=== PATIENT | male | born 1930 | race Caucasian/White ===

== ENCOUNTER 2017-06-21 11:03 | Inpatient (IN) | payer MEDICARE ==
[~2017-06-21] VITALS: Ht 189.2 cm; Wt 73.7 kg
[2017-06-21 14:59] VITALS: BP 159/93
[2017-06-21] MEDS ORDERED: ACET325T9 PO (15:11)
[2017-06-21] MEDS ORDERED: LOSA50TA6 PO (15:11)
[2017-06-21] MEDS ORDERED: TAMS0.4C2 PO (15:11)
[2017-06-21] MEDS ORDERED: PANT40TA5 PO (15:11)
[2017-06-21] MEDS ORDERED: ASPI-630 PO (15:11)
[2017-06-21] MEDS ORDERED: MULT1TAB52 PO (15:11)
[2017-06-21] MEDS ORDERED: FLUT9.9S NS (15:11)
[2017-06-21] MEDS ORDERED: HYDR-2758 PO (15:11)
--- NOTE | 2017-06-21 20:02 | HP ---
ADMIT DATE: 06/21/2017 HISTORY OF PRESENT ILLNESS: The patient is an 87-year-old right-handed male patient who was living independently in his own home. He is known to have Eatgxxd-Xlaql-Bdtpp hereditary neuropathy. He apparently attempted to get out of his bedroom door when he suddenly lost his balance and hit the edge of the door and then fell to the ground. He spent several hours attempting try to get to his telephone, which was closer to bed, and according to him, he did a modified ___ call. He realized that he was in a lot of pain to his left rib wall. However, he did not have any hemoptysis and neither did he complain of significant shortness of breath, but he did have quite a bit disabling pain. The patient was found, was brought to [facility] emergently on 06/12/2017. He was found at 12:00 the next day by his family members. His CK was elevated. When he arrived there, he was diagnosed to have any rhabdomyolysis. In addition to that, he suffered multiple rib fractures on the left from rib 4 to 8. He was partially stabilized and was referred for admission to acute inpatient rehabilitation at [facility] where he was seen, and as he was unable to participate with regular exercise required for inpatient rehabilitation, he was transferred to our hospital to be admitted to [facility] bed. When I saw him this afternoon, he continued to have some discomfort in the left side, especially on attempt to move or take a deep breath or cough, but denied any shortness of breath, cough, phlegm or hemoptysis. Also, apparently, his right second toenail was removed, and he has some sutures that are covered with dry scab. PAST MEDICAL HISTORY: Significant for hypertension, Qmttlyp-Teqtp-Gitdt related to neuropathy with marked muscle weakness of his hands and feet. He has also pes cavus of both feet, benign prostatic hypertrophy. PAST SURGICAL HISTORY: Significant for appendectomy and hip replacement as well as bilateral cataract extraction. ALLERGIES: HE IS ALLERGIC TO GABAPENTIN. MEDICATIONS: He is currently on following medications: He is on Tylenol 650 mg every 4 hours, aspirin 81 mg once a day, Flonase 1 spray to each nostril twice a day, hydrocodone/APAP 5/325 two tablets every 4 hours as needed, losartan potassium 50 mg once a day, multivitamin 1 tablet once a day, Protonix 40 mg once a day, and tamsulosin 0.4 mg once a day. FAMILY HISTORY: Positive for hypertension and heart problems. SOCIAL HISTORY: He is , lives by himself in a 2 level house, ambulatory with the use adaptive equipment. He has 2 daughters and 2 grandsons that also can check on him. His plan obviously was to get stronger and to go back home to live on his own again. REVIEW OF SYSTEMS: The patient denied any blurring of vision. He apparently had bilateral cataract extractions, but denied any glaucoma or macular degeneration. Denied any earache, tinnitus or sensorineural deafness. Denied any nosebleeds, stuffy nose or postnasal drip. Denied any sore throat, sore tongue, toothache, hoarseness of voice or difficulty swallowing. Denied any nausea, vomiting, diarrhea or constipation. Denied any hematemesis, melena or hematochezia. Denied any dysuria, frequency or hematuria. He does have urge incontinence. He does have obviously chest discomfort mostly in the left side, exacerbated by movement, taking a deep breath and coughing, but he does not have any shortness of breath at rest. PHYSICAL EXAMINATION: GENERAL: When I examined him this afternoon, he was resting slightly propped up in bed, in no apparent respiratory distress, was pale. No jaundice, cyanosis, or thyromegaly. No jugular venous distension. No lower limb edema. VITAL SIGNS: His heart rate was 109, blood pressure was 159/93, temperature was 97.4, respiratory rate was 18 and oxygen saturation was 98%. HEAD, EYES, EARS, NOSE AND THROAT: Showed normocephalic, atraumatic. NECK: Supple. HEART: Showed normal first and second heart sounds with no gallop, rub or murmur. CHEST: Clear to auscultation. No crepitation or rhonchi. ABDOMEN: Distended, soft, nontender. No guarding or rigidity. No organomegaly. Hernial orifices intact. Bowel sounds normal. NEUROLOGIC: He was awake, alert, responding appropriately. All cranial nerves intact. EXTREMITIES: He moves extremities without difficulty. He has hereditary Aspsdlh-Nadqe-Uivsr neuropathy with marked muscle wasting and weakness of both hands and feet. Examination of the extremities showed no clubbing, cyanosis or edema. All his peripheral pulses are easily palpable. ASSESSMENT: In summary, this is an 87-year-old male patient who normally lives alone and fairly independent, who has a mechanical fall leading to multiple left-sided rib fractures. He has also had splinting secondary to traumatic pain and rhabdomyolysis with elevated CPK. He has also avulsion injury of his right second toe with sutures in place. He has multiple other medical problems including hypertension, benign prostatic hypertrophy, on Flomax, Qebbqpq-Fzqjw-Wgrpn polyneuropathy, dysphagia and protein calorie malnutrition with severe weakness and debility. My plan is obviously to continue with pain management. Continue with physical and occupational therapy and nutritional support. I will apply Xeroform to moisten the scab over his second right toe, and hopefully tomorrow, we will be able to find out the sutures and remove them. I will send blood for lab work and decide on further management accordingly. KARRI BRUNER MD DR: GERSON/lexy JOB#: [id number] / [id number]
[2017-06-21 21:30] VITALS: BP 160/91
[2017-06-21] MEDS: HYDROcodone/APAP 5/325MG 1 TAB TABLET PO PRN (22:15)
[2017-06-22] MEDS: HYDROcodone/APAP 5/325MG 1 TAB TABLET PO PRN ×3 (01:40→22:52)
[2017-06-22 06:23] LABS: HEMATOCRIT 33.9 % (39.0-53.0); HEMOGLOBIN 12.1 g/dL (13.0-17.5); RED BLOOD COUNT 3.45 x10^6/uL (4.30-5.70); RED CELL DISTRIBUTION WIDTH 13.3 % (11.5-14.5)
[2017-06-22 06:57] LABS: CALCIUM 8.3 mg/dL (8.5-10.1); GFR 70.4; POTASSIUM 3.4 mmol/L (3.5-5.1); TOTAL BILIRUBIN 0.6 mg/dL (0.2-1.0); TOTAL PROTEIN 6.1 g/dL (6.4-8.2)
[2017-06-22 09:44] VITALS: BP 124/75
[2017-06-22] MEDS: PANTOPRAZOLE 40 MG TABLET. PO SCH (09:49)
[2017-06-22] MEDS: FLUTICASONE 50MCG/NASAL SPRAY 16GM BOTTLE. NS SCH (09:49)
[2017-06-22] MEDS: MULTIVITAMIN with MINERAL TABLET. PO SCH (09:49)
[2017-06-22] MEDS: LOSARTAN 50 MG TABLET. PO SCH (09:49)
[2017-06-22] MEDS: TAMSULOSIN 0.4 MG CAP.ER.24H. PO SCH (09:49)
[2017-06-22] MEDS: ASPIRIN 81 MG TAB.CHEW PO SCH (09:49)
[2017-06-22 21:32] VITALS: BP 158/82
[2017-06-23 06:29] VITALS: BP 127/81
[2017-06-23] MEDS: LOSARTAN 50 MG TABLET. PO SCH (09:06)
[2017-06-23] MEDS: TAMSULOSIN 0.4 MG CAP.ER.24H. PO SCH (09:06)
[2017-06-23] MEDS: ASPIRIN 81 MG TAB.CHEW PO SCH (09:06)
[2017-06-23] MEDS: MULTIVITAMIN with MINERAL TABLET. PO SCH (09:06)
[2017-06-23] MEDS: PANTOPRAZOLE 40 MG TABLET. PO SCH (09:06)
[2017-06-23] MEDS: HYDROcodone/APAP 5/325MG 1 TAB TABLET PO PRN ×3 (09:07→19:23)
[2017-06-23] MEDS: FLUTICASONE 50MCG/NASAL SPRAY 16GM BOTTLE. NS SCH (09:07)
[2017-06-23] MEDS: CARVEDILOL 12.5 MG TABLET PO SCH (17:26)
[2017-06-23 18:14] VITALS: BP 112/69
[2017-06-24 06:12] VITALS: BP 135/73
[2017-06-24] MEDS: HYDROcodone/APAP 5/325MG 1 TAB TABLET PO PRN ×2 (06:37→19:44)
[2017-06-24 07:46] VITALS: BP 155/84
[2017-06-24] MEDS: PANTOPRAZOLE 40 MG TABLET. PO SCH (09:02)
[2017-06-24] MEDS: TAMSULOSIN 0.4 MG CAP.ER.24H. PO SCH (09:03)
[2017-06-24] MEDS: MULTIVITAMIN with MINERAL TABLET. PO SCH (09:03)
[2017-06-24] MEDS: LOSARTAN 50 MG TABLET. PO SCH (09:03)
[2017-06-24] MEDS: ASPIRIN 81 MG TAB.CHEW PO SCH (09:03)
[2017-06-24] MEDS: CARVEDILOL 12.5 MG TABLET PO SCH ×2 (09:03→17:27)
[2017-06-24] MEDS: FLUTICASONE 50MCG/NASAL SPRAY 16GM BOTTLE. NS SCH (09:04)
[2017-06-24 17:24] VITALS: BP 163/80
[2017-06-25 06:42] VITALS: BP 190/80
[2017-06-25] MEDS: ASPIRIN 81 MG TAB.CHEW PO SCH (07:53)
[2017-06-25] MEDS: PANTOPRAZOLE 40 MG TABLET. PO SCH (07:53)
[2017-06-25] MEDS: CARVEDILOL 12.5 MG TABLET PO SCH ×2 (07:53→17:02)
[2017-06-25] MEDS: MULTIVITAMIN with MINERAL TABLET. PO SCH (07:53)
[2017-06-25] MEDS: TAMSULOSIN 0.4 MG CAP.ER.24H. PO SCH (07:53)
[2017-06-25] MEDS: LOSARTAN 50 MG TABLET. PO SCH (07:54)
[2017-06-25] MEDS: FLUTICASONE 50MCG/NASAL SPRAY 16GM BOTTLE. NS SCH (07:54)
[2017-06-25] MEDS: HYDROcodone/APAP 5/325MG 1 TAB TABLET PO PRN ×3 (07:57→21:30)
[2017-06-25 11:14] VITALS: BP 104/63
[2017-06-25 14:25] VITALS: BP 108/64
[2017-06-25 18:20] VITALS: BP 106/55
[2017-06-26] MEDS: HYDROcodone/APAP 5/325MG 1 TAB TABLET PO PRN ×3 (03:44→18:51)
[2017-06-26 05:22] VITALS: BP 132/66
[2017-06-26] MEDS: CARVEDILOL 6.25 MG TABLET PO SCH ×2 (08:30→17:00)
[2017-06-26] MEDS: MULTIVITAMIN with MINERAL TABLET. PO SCH (08:31)
[2017-06-26] MEDS: ASPIRIN 81 MG TAB.CHEW PO SCH (08:31)
[2017-06-26] MEDS: TAMSULOSIN 0.4 MG CAP.ER.24H. PO SCH (08:31)
[2017-06-26] MEDS: PANTOPRAZOLE 40 MG TABLET. PO SCH (08:31)
[2017-06-26] MEDS: FLUTICASONE 50MCG/NASAL SPRAY 16GM BOTTLE. NS SCH (08:33)
[2017-06-26] MEDS: LOSARTAN 50 MG TABLET. PO SCH (08:34)
[2017-06-26 14:09] VITALS: BP 120/79
[2017-06-26 19:01] VITALS: BP 139/78
[2017-06-27] MEDS: HYDROcodone/APAP 5/325MG 1 TAB TABLET PO PRN ×4 (01:40→23:07)
[2017-06-27 05:43] VITALS: BP 142/72
--- NOTE | 2017-06-27 06:57 | PN ---
DATE: 06/26/2017 CURRENT PROBLEMS: 1. Mechanical fall. 2. Left rib fractures. 3. Pain management. 4. Rhabdomyolysis, which is resolved. 5. Hypertension. 6. Benign prostatic hypertrophy. 7. Qmshetb-Qfsjs-Oeijg neuropathy. 8. Weakness. 9. Protein-calorie malnutrition. 10. Right toenail removal. SUBJECTIVE: This is an 87-year-old male who was transferred from [facility] for swing bed status after falling and remaining down on the ground for a long period of time, probably over 12 hours and had rhabdomyolysis, also rib fractures. He has been undergoing PT and OT. His blood pressure has been elevated and he was started on Coreg 12.5 mg twice a day. He did have some low blood pressures this morning. Also had two Lortab last night and then an additional Lortab at 3:45 this morning. He told his daughter that he does not remember what happened yesterday. This could be amnesia from the pain medication. OBJECTIVE: VITAL SIGNS: Blood pressure 132/66, pulse 75, respirations 20, pulse ox 93% on room air, temperature is 98; yesterday evening had 106/55. GENERAL: He is sitting up in bed, eating his breakfast. He is able to do feed himself. He is alert, but does state he does not remember much what happened yesterday. HEENT: His tongue was moist. NECK: Supple. LUNGS: Clear. CARDIOVASCULAR: Regular rhythm and rate with a 2/6 systolic murmur. ABDOMEN: Soft and nontender. EXTREMITIES: Without edema. PLAN: I am going to decrease Lortab to just one every 4 hours as needed. Also decrease the Coreg down to 6.25 twice a day and monitor for any other side effects he might have and continue PT and OT for now. He is getting Boost for his protein-calorie malnutrition. AMBROSE QUIÑONES DO DR: JUAN DIEGO/lexy JOB#: [id number] / [id number]
[2017-06-27] MEDS: CARVEDILOL 6.25 MG TABLET PO SCH (08:00)
[2017-06-27] MEDS: PANTOPRAZOLE 40 MG TABLET. PO SCH (08:19)
[2017-06-27] MEDS: FLUTICASONE 50MCG/NASAL SPRAY 16GM BOTTLE. NS SCH (08:19)
[2017-06-27] MEDS: ASPIRIN 81 MG TAB.CHEW PO SCH (08:20)
[2017-06-27] MEDS: LOSARTAN 50 MG TABLET. PO SCH (08:20)
[2017-06-27] MEDS: MULTIVITAMIN with MINERAL TABLET. PO SCH (08:21)
[2017-06-27] MEDS: TAMSULOSIN 0.4 MG CAP.ER.24H. PO SCH (08:21)
[2017-06-27 09:19] VITALS: BP 143/73
[2017-06-27] MEDS ORDERED: POLYETHYLENE GLYCOL 3350 17 GM PACKET. PO ONE (12:45)
[2017-06-27 16:00] VITALS: BP 145/78
[2017-06-27 19:09] VITALS: BP 147/77
[2017-06-28 06:00] VITALS: BP 139/76
[2017-06-28] MEDS: HYDROcodone/APAP 5/325MG 1 TAB TABLET PO PRN ×3 (06:17→21:00)
[2017-06-28] MEDS: PANTOPRAZOLE 40 MG TABLET. PO SCH (08:45)
[2017-06-28] MEDS: FLUTICASONE 50MCG/NASAL SPRAY 16GM BOTTLE. NS SCH (08:46)
[2017-06-28] MEDS: ASPIRIN 81 MG TAB.CHEW PO SCH (08:46)
[2017-06-28] MEDS: LOSARTAN 50 MG TABLET. PO SCH (08:47)
[2017-06-28] MEDS: TAMSULOSIN 0.4 MG CAP.ER.24H. PO SCH (08:47)
[2017-06-28] MEDS: MULTIVITAMIN with MINERAL TABLET. PO SCH (08:47)
[2017-06-28] MEDS: POLYETHYLENE GLYCOL 3350 17 GM PACKET. PO SCH (08:47)
[2017-06-28 18:27] VITALS: BP 142/76
[2017-06-29] MEDS: ACETAMINOPHEN 325 MG TABLET PO PRN ×2 (01:57→09:06)
[2017-06-29 04:18] LABS: BILIRUBIN,URINE NEG (NEG); CLARITY,URINE CLEAR; COLOR,URINE YELLOW; GLUCOSE,URINE 500 mg/dL (NEG); NITRITE,URINE NEG (NEG); RBC,URINE RARE /HPF (0-2); UROBILINOGEN,URINE 1 mg/dL (0.2 mg/dL); WBC,URINE RARE /HPF (0-4)
[2017-06-29 04:19] LABS: BACTERIA,URINE 0 /HPF (0-FEW); SQUAMOUS EPITHELIAL CELL,UR OCC /LPF
[2017-06-29 06:14] VITALS: BP 151/82
[2017-06-29] MEDS: PANTOPRAZOLE 40 MG TABLET. PO SCH (06:27)
[2017-06-29 07:29] LABS: BASO % 1 % (0-3); EOS # 0.2 x10^3/uL (0.0-0.7); EOS % 4 % (0-3); HEMATOCRIT 37.6 % (39.0-53.0); HEMOGLOBIN 12.7 g/dL (13.0-17.5); LYMPH # 0.9 x10^3/uL (1.0-4.8); LYMPH % 18 % (24-48); MEAN CORPUSCULAR HEMOGLOBIN 33 pg (25-35); MEAN CORPUSCULAR HGB CONC 34 g/dL (31-37); MEAN CORPUSCULAR VOLUME 99 fL (79-100); MONO # 0.4 x10^3/uL (0.0-1.1); MONO % 7 % (0-9); NEUT # 3.6 x10^3uL (1.8-7.7); NEUT % 70 % (31-73); PLATELET COUNT 252 x10^3/uL (140-400); RED BLOOD COUNT 3.81 x10^6/uL (4.30-5.70); WHITE BLOOD COUNT 5.1 x10^3/uL (4.0-11.0)
[2017-06-29 07:44] LABS: ALBUMIN 3.2 g/dL (3.4-5.0); ALBUMIN/GLOBULIN RATIO 1.1 (1.0-1.7); CALCIUM 8.6 mg/dL (8.5-10.1); CREATININE 0.9 mg/dL (0.7-1.3); GFR 79.5; MAGNESIUM 2.2 mg/dL (1.8-2.4); POTASSIUM 3.7 mmol/L (3.5-5.1); TOTAL BILIRUBIN 0.7 mg/dL (0.2-1.0); TOTAL PROTEIN 6.2 g/dL (6.4-8.2)
[2017-06-29] MEDS: ASPIRIN 81 MG TAB.CHEW PO SCH (09:06)
[2017-06-29] MEDS: TAMSULOSIN 0.4 MG CAP.ER.24H. PO SCH (09:06)
[2017-06-29] MEDS: MULTIVITAMIN with MINERAL TABLET. PO SCH (09:06)
[2017-06-29] MEDS: POLYETHYLENE GLYCOL 3350 17 GM PACKET. PO SCH (09:06)
[2017-06-29] MEDS: LOSARTAN 50 MG TABLET. PO SCH (09:07)
[2017-06-29] MEDS: FLUTICASONE 50MCG/NASAL SPRAY 16GM BOTTLE. NS SCH (09:08)
[2017-06-29] MEDS ORDERED: ACETAMINOPHEN 325 MG TABLET PO PRN (13:00)
[2017-06-29] MEDS: ACETAMINOPHEN 500 MG TABLET PO SCH ×2 (14:11→19:51)
[2017-06-29 20:00] VITALS: BP 139/77
[2017-06-30 01:10] LABS: BILIRUBIN,URINE NEG (NEG); CLARITY,URINE CLEAR; COLOR,URINE STRAW; GLUCOSE,URINE NEG (NEG)
[2017-06-30 01:11] LABS: BACTERIA,URINE FEW /HPF (0-FEW); NITRITE,URINE NEG (NEG); RBC,URINE 0 /HPF (0-2); SQUAMOUS EPITHELIAL CELL,UR FEW /LPF; UROBILINOGEN,URINE 1 mg/dL (0.2 mg/dL); WBC,URINE 0 /HPF (0-4)
[2017-06-30 05:53] VITALS: BP 131/76
[2017-06-30] MEDS: TAMSULOSIN 0.4 MG CAP.ER.24H. PO SCH (08:42)
[2017-06-30] MEDS: ACETAMINOPHEN 500 MG TABLET PO SCH ×3 (08:42→20:28)
[2017-06-30] MEDS: MULTIVITAMIN with MINERAL TABLET. PO SCH (08:43)
[2017-06-30] MEDS: LOSARTAN 50 MG TABLET. PO SCH (08:43)
[2017-06-30] MEDS: PANTOPRAZOLE 40 MG TABLET. PO SCH (08:43)
[2017-06-30] MEDS: FLUTICASONE 50MCG/NASAL SPRAY 16GM BOTTLE. NS SCH (08:46)
[2017-06-30] MEDS ORDERED: POLYETHYLENE GLYCOL 3350 17 GM PACKET. PO PRN (09:00)
[2017-06-30] MEDS: ASPIRIN 81 MG TAB.CHEW PO SCH (09:00)
[2017-07-01 05:51] VITALS: BP 147/80
[2017-07-01] MEDS ORDERED: DUTASTERIDE 0.5 MG CAPSULE PO SCH (09:00)
[2017-07-01] MEDS: MULTIVITAMIN with MINERAL TABLET. PO SCH (09:27)
[2017-07-01] MEDS: PANTOPRAZOLE 40 MG TABLET. PO SCH (09:27)
[2017-07-01] MEDS: FLUTICASONE 50MCG/NASAL SPRAY 16GM BOTTLE. NS SCH (09:27)
[2017-07-01] MEDS: ASPIRIN 81 MG TAB.CHEW PO SCH (09:27)
[2017-07-01] MEDS: TAMSULOSIN 0.4 MG CAP.ER.24H. PO SCH (09:27)
[2017-07-01] MEDS: ACETAMINOPHEN 500 MG TABLET PO SCH ×3 (09:27→20:00)
[2017-07-01] MEDS: LOSARTAN 50 MG TABLET. PO SCH (09:28)
[2017-07-01 17:43] VITALS: BP 127/76
[2017-07-02 05:18] VITALS: BP 144/79
[2017-07-02] MEDS: TAMSULOSIN 0.4 MG CAP.ER.24H. PO SCH (09:15)
[2017-07-02] MEDS: ACETAMINOPHEN 500 MG TABLET PO SCH ×3 (09:15→20:10)
[2017-07-02] MEDS: ASPIRIN 81 MG TAB.CHEW PO SCH (09:15)
[2017-07-02] MEDS: PANTOPRAZOLE 40 MG TABLET. PO SCH (09:15)
[2017-07-02] MEDS: MULTIVITAMIN with MINERAL TABLET. PO SCH (09:15)
[2017-07-02] MEDS: LOSARTAN 50 MG TABLET. PO SCH (09:16)
[2017-07-02] MEDS: FLUTICASONE 50MCG/NASAL SPRAY 16GM BOTTLE. NS SCH (09:16)
[2017-07-02 17:55] VITALS: BP 120/69
[2017-07-03] MEDS: HYDROcodone/APAP 5/325MG 1 TAB TABLET PO PRN (02:13)
[2017-07-03 05:34] VITALS: BP 146/79
[2017-07-03] MEDS: PANTOPRAZOLE 40 MG TABLET. PO SCH (08:29)
[2017-07-03 08:30] VITALS: BP 146/79
[2017-07-03] MEDS: ASPIRIN 81 MG TAB.CHEW PO SCH (08:30)
[2017-07-03] MEDS: LOSARTAN 50 MG TABLET. PO SCH (08:30)
[2017-07-03] MEDS: MULTIVITAMIN with MINERAL TABLET. PO SCH (08:30)
[2017-07-03] MEDS: ACETAMINOPHEN 500 MG TABLET PO SCH ×2 (08:30→14:00)
[2017-07-03] MEDS: TAMSULOSIN 0.4 MG CAP.ER.24H. PO SCH (08:30)
[2017-07-03] MEDS: FLUTICASONE 50MCG/NASAL SPRAY 16GM BOTTLE. NS SCH (08:32)
--- NOTE | 2017-07-03 13:09 | DS ---
DATE OF DISCHARGE: 07/03/2017 HOSPITAL COURSE: This is an 87-year-old male patient who was admitted as a transfer from [facility] on 06/21/2017 as he had a mechanical fall with resultant left-sided rib fracture. He apparently also sustained rhabdomyolysis that has resolved. He had also initially a problem with pain management and gradually the patient did well. His pain is much better controlled. He is now on the Tylenol and his mobility has improved and the decision was made to discharge him home with home health to continue the process of rehabilitation at home. PHYSICAL EXAMINATION: GENERAL: When I examined him, he was sitting comfortably, eating his lunch, in no apparent distress. On questioning him, he denies any complaint. When I examined him, he looked pale, but no jaundice, cyanosis, or thyromegaly, no jugular venous distention, no limb edema. VITAL SIGNS: His heart rate was 91, blood pressure 146/79, temperature was 98.1, respiratory rate was 18 and oxygen saturation was 93%. HEAD, EYES, EARS, NOSE AND THROAT: Normocephalic, atraumatic. NECK: Supple. HEART: Showed normal first and second heart sounds with no gallop, rub or murmur. CHEST: Clear to auscultation. No crepitation or rhonchi. ABDOMEN: Distended, soft, nontender. No guarding or rigidity. No organomegaly. All hernial orifices were intact and bowel sounds were normal. NEUROLOGIC: He was awake, alert, responding appropriately. He ambulates with a walker without assistance. LABORATORY DATA: Showed his white cell count 5100, hemoglobin 12.7, hematocrit 37.6, MCV 99, platelet count of 252,000. His chemistry showed a serum sodium of 137, potassium 3.7, chloride 102, bicarbonate 28, anion gap of 7, BUN 10, creatinine 0.9, estimated GFR over 79 mL per minute. His glucose was 97, calcium was 8.6, magnesium 2.2. Total bilirubin, AST, ALT were normal. Alkaline phosphatase slightly elevated. Total protein of 6.2, albumin 3.1. DISCHARGE MEDICATIONS: He was discharged home to continue on acetaminophen 650 mg every 4 hours, aspirin 81 mg once a day, Flonase 1 spray to each nostril twice a day, losartan potassium 50 mg once a day, multivitamin 1 tablet once a day, Protonix 40 mg once a day and Flomax 0.4 mg once a day at bedtime. FINAL DISCHARGE SUMMARY: 1. Mechanical fall with multiple left-sided rib fractures. 2. Rhabdomyolysis that has resolved. 3. Hypertension. 4. Rwfhjue-Zebva-Dhncz, hereditary neuropathy. 5. Benign prostatic hypertrophy. KARRI BRUNER MD DR: GERSON/lexy JOB#: [id number] / [id number]
== END 2017-07-03 15:00 | disposition home health service (06) | DRG 184 ==
LOC: LND 13:29
PROVIDERS: ADMIT Internal Medicine; ATTEND Internal Medicine
DX: S22.42XA Multiple fractures of ribs, left side, initial encounter for closed fracture (principal); E46 Unspecified protein-calorie malnutrition; M62.82 Rhabdomyolysis; G60.0 Hereditary motor and sensory neuropathy; R13.10 Dysphagia, unspecified; W01.198A Fall on same level from slipping, tripping and stumbling with subsequent striking against other object, initial encounter; I10 Essential (primary) hypertension; Z96.649 Presence of unspecified artificial hip joint; N40.0 Benign prostatic hyperplasia without lower urinary tract symptoms; Z82.49 Family history of ischemic heart disease and other diseases of the circulatory system; Z98.41 Cataract extraction status, right eye; Z98.42 Cataract extraction status, left eye; Z90.49 Acquired absence of other specified parts of digestive tract; Z88.8 Allergy status to other drugs, medicaments and biological substances; Y93.89 Activity, other specified; Y92.092 Bedroom in other non-institutional residence as the place of occurrence of the external cause; Y99.8 Other external cause status
CPT/HCPCS: 36415; 80053; 81001; 82947; 83735; 84443; 85025; 85027; 97110; 97116; 97530; 97535